=== PATIENT | male | born 1975 | race Caucasian/White ===

== ENCOUNTER → 2019-12-09 | Outpatient (REF) | payer BC ==
[2019-12-09 11:59] LABS: SEMEN APPEARANCE OPAQUE (OPAQUE); SEMEN VOLUME 4.3 ml (2.0-5.0)
[2019-12-09 12:00] LABS: SEMEN VISCOSITY LIQUID (LIQUID); SPERM CONCENTRATION 7.6 M/ml (>=15.0); WBC CONCENTRATION <=1 M/ml (<=1 M/ml)
== END ==
LOC: M SMT 11:50
PROVIDERS: ATTEND Nurse Practitioner Family
DX: N46.9 Male infertility, unspecified (principal)

== ENCOUNTER → 2019-12-28 | Outpatient (REF) | payer BC ==
[2019-12-28 14:06] LABS: SEMEN APPEARANCE OPAQUE (OPAQUE); SEMEN VISCOSITY LIQUID (LIQUID); SEMEN VOLUME 4.5 ml (2.0-5.0); SEMEN pH 8.5 (7.0-8.0); SPERM CONCENTRATION 22.9 M/ml (>=15.0); WBC CONCENTRATION <=1 M/ml (<=1 M/ml)
== END ==
LOC: M SMT 13:45
PROVIDERS: ATTEND Nurse Practitioner Family
DX: N46.9 Male infertility, unspecified (principal)

== ENCOUNTER → 2020-11-13 | Outpatient (REF) | payer BC ==
[2020-11-13 10:21] LABS: SEMEN APPEARANCE OPAQUE (OPAQUE); SEMEN VISCOSITY VISCOUS (LIQUID); SEMEN VOLUME 3.3 ml (2.0-5.0)
[2020-11-13 10:22] LABS: SPERM CONCENTRATION 18.9 M/ml (>=15.0); WBC CONCENTRATION >1 M/ml (<=1 M/ml)
== END ==
LOC: M SMT 10:01
PROVIDERS: ATTEND Nurse Practitioner Family
DX: N46.9 Male infertility, unspecified (principal)

== ENCOUNTER 2023-09-26 22:34 | Inpatient (IN) | payer BC ==
[~2023-09-26] VITALS: Ht 167.6 cm; Wt 64.5 kg
[2023-09-26] MEDS ORDERED: ACETAMINOPHEN TAB 650MG DOSE (2X325MG) PO PRN (23:45)
[2023-09-26] MEDS ORDERED: traZODone 50 MG TAB PO PRN (23:45)
[2023-09-26] MEDS ORDERED: MOM 30ML SUSPENSION UDC PO PRN (23:45)
[2023-09-26] MEDS ORDERED: diphenhydrAMINE 25MG CAP PO PRN (23:45)
[2023-09-26] MEDS ORDERED: MAALOX 30 ML SUSP *UDC PO PRN (23:45)
[2023-09-26] MEDS ORDERED: IBUPROFEN 400MG TAB PO PRN (23:45)
[2023-09-27] MEDS ORDERED: ESZO1TAB4 PO (00:21)
[2023-09-27] MEDS ORDERED: FLUO20CA22 PO (00:21)
[2023-09-27] MEDS ORDERED: XARE20TA PO (00:21)
[2023-09-27] MEDS ORDERED: HYDR-3363 PO (00:21)
[2023-09-27] MEDS ORDERED: HOME MED LIST COMPLETE! XX SCH (00:25)
[2023-09-27 00:47] VITALS: BP 140/82; TEMP 97.1; O2SAT 98
[2023-09-27 06:29] VITALS: BP 129/69; TEMP 97.5; O2SAT 96
[2023-09-27 10:38] LABS: HEMATOCRIT 48.6 % (42.0-52.0); HEMOGLOBIN 15.8 g/dl (13.5-17.5); MEAN CORPUSCULAR HEMOGLOBIN 30.6 pg (27.0-33.0); MEAN CORPUSCULAR HGB CONC 32.5 g/dl (32.0-36.5); MEAN CORPUSCULAR VOLUME 94.2 fl (80.0-96.0); PLATELET COUNT, AUTOMATED 184 10^3/uL (150-450); RED BLOOD COUNT 5.16 10^6/uL (4.30-6.10); WHITE BLOOD COUNT 5.6 10^3/uL (4.0-10.0)
[2023-09-27] MEDS: FLUoxetine 20MG CAP PO SCH (10:40)
[2023-09-27 10:59] LABS: ALBUMIN 3.9 G/DL (3.2-5.2); ALKALINE PHOSPHATASE 73 U/L (46-116); ALT/SGPT 30 U/L (7.0-40); AST/SGOT 20 U/L (<34); BILIRUBIN,TOTAL 0.9 MG/DL (0.3-1.2); BLOOD UREA NITROGEN 12 MG/DL (9-23); CALCIUM LEVEL 9.1 MG/DL (8.5-10.1); CARBON DIOXIDE LEVEL 30 MMOL/L (20-31); CHLORIDE LEVEL 108 MMOL/L (98-107); CREATININE FOR GFR 0.86 MG/DL (0.70-1.30); GLOMERULAR FILTRATION RATE > 60.0 (>60); GLUCOSE, FASTING 176 MG/DL (60-100); POTASSIUM SERUM 3.9 MMOL/L (3.5-5.1); SODIUM LEVEL 143 MMOL/L (136-145); TOTAL PROTEIN 6.9 G/DL (5.7-8.2)
[2023-09-27 11:02] LABS: THYROID STIMULATING HORMONE 2.646 uIU/ML (0.55-4.78)
[2023-09-27] MEDS ORDERED: ISOVUE-370 76% 100ML VIAL As Ordered ONE (11:03)
[2023-09-27] MEDS ORDERED: RIVAROXABAN 20MG TAB (XARELTO) PO SCH (18:00)
[2023-09-28 06:08] VITALS: BP 116/72; TEMP 98.5; O2SAT 97
[2023-09-28] MEDS: FLUoxetine 20MG CAP PO SCH (09:23)
[2023-09-28] MEDS ORDERED: ISOVUE-370 76% 100ML VIAL As Ordered ONE (10:12)
[2023-09-28 16:10] VITALS: BP 134/60; TEMP 98.8; O2SAT 96
[2023-09-28] MEDS: hydrOXYzine 50 MG TAB PO PRN (20:16)
[2023-09-28] MEDS: traZODone 50 MG TAB PO PRN (20:16)
[2023-09-29 06:32] VITALS: BP 103/62; TEMP 98.2; O2SAT 97
[2023-09-29] MEDS: FLUoxetine 20MG CAP PO SCH (08:44)
[2023-09-29 09:56] LABS: FREE T4 1.05 NG/DL (0.89-1.76)
[2023-09-29 18:11] VITALS: BP 166/69; TEMP 97.5
[2023-09-29] MEDS: hydrOXYzine 50 MG TAB PO PRN (20:05)
[2023-09-29] MEDS: traZODone 50 MG TAB PO PRN (20:06)
[2023-09-30 06:18] VITALS: BP 113/67; TEMP 97.8; O2SAT 97
[2023-09-30] MEDS ORDERED: FLUoxetine 10 MG CAP PO SCH (09:00)
[2023-09-30 17:02] VITALS: BP 118/70; TEMP 96.2; O2SAT 99
[2023-09-30] MEDS: hydrOXYzine 50 MG TAB PO PRN (20:02)
[2023-09-30] MEDS: traZODone 50 MG TAB PO PRN (20:02)
[2023-10-01 06:23] VITALS: BP 111/55; TEMP 98.2; O2SAT 96
[2023-10-01] MEDS ORDERED: E-Z-GAS II EFFERVESCENT PACKET (SODIUM BICARB./CITRIC ACID/SIMETHICONE) As Ordered ONE (07:37)
[2023-10-01] MEDS ORDERED: E-Z-PAQUE 96% w/w SUSP 176GM BTL As Ordered ONE (07:37)
[2023-10-01] MEDS ORDERED: E-Z-HD 98% w/w 340GM SUSP BTL As Ordered ONE (07:38)
[2023-10-01] MEDS: FLUoxetine 10 MG CAP PO SCH (08:53)
[2023-10-01] MEDS: RIVAROXABAN 20MG TAB (XARELTO) PO SCH (08:53)
[2023-10-01 17:05] VITALS: BP 111/63; TEMP 97.5; O2SAT 99
[2023-10-01] MEDS: hydrOXYzine 50 MG TAB PO PRN (20:18)
[2023-10-01] MEDS: traZODone 50 MG TAB PO PRN (20:18)
[2023-10-02 06:29] VITALS: BP 113/63; TEMP 97.3
[2023-10-02] MEDS: FLUoxetine 10 MG CAP PO SCH (08:15)
[2023-10-02] MEDS: RIVAROXABAN 20MG TAB (XARELTO) PO SCH (08:15)
[2023-10-02 16:28] VITALS: BP 102/62; TEMP 98.3; O2SAT 98
[2023-10-02] MEDS: hydrOXYzine 50 MG TAB PO PRN (21:36)
[2023-10-02] MEDS: traZODone 50 MG TAB PO PRN (21:36)
[2023-10-03 06:27] VITALS: BP 112/67; TEMP 98.2; O2SAT 97
[2023-10-03] MEDS: FLUoxetine 10 MG CAP PO SCH (08:09)
[2023-10-03] MEDS: RIVAROXABAN 20MG TAB (XARELTO) PO SCH (08:09)
[2023-10-03 15:50] VITALS: BP 110/58; TEMP 98.3; O2SAT 100
[2023-10-03] MEDS: traZODone 50 MG TAB PO PRN (21:40)
[2023-10-03] MEDS: hydrOXYzine 50 MG TAB PO PRN (21:40)
[2023-10-04 06:27] VITALS: BP 117/75; TEMP 98; O2SAT 100
[2023-10-04] MEDS: RIVAROXABAN 20MG TAB (XARELTO) PO SCH (08:24)
[2023-10-04] MEDS: FLUoxetine 10 MG CAP PO SCH (08:24)
[2023-10-04 15:24] VITALS: BP 100/58; TEMP 98; O2SAT 97
[2023-10-04] MEDS: hydrOXYzine 50 MG TAB PO PRN (21:31)
[2023-10-04] MEDS: traZODone 50 MG TAB PO PRN (21:31)
[2023-10-05 06:50] VITALS: BP 118/70; TEMP 98.2; O2SAT 100
[2023-10-05] MEDS: RIVAROXABAN 20MG TAB (XARELTO) PO SCH (08:23)
[2023-10-05] MEDS: FLUoxetine 10 MG CAP PO SCH (08:23)
[2023-10-05 18:00] VITALS: BP 114/58; TEMP 97.9; O2SAT 99
[2023-10-05] MEDS: traZODone 50 MG TAB PO PRN (20:34)
[2023-10-05] MEDS: hydrOXYzine 50 MG TAB PO PRN (20:34)
[2023-10-06 06:31] VITALS: BP 117/73; TEMP 97.1; O2SAT 97
[2023-10-06] MEDS: FLUoxetine 10 MG CAP PO SCH (08:53)
[2023-10-06] MEDS: RIVAROXABAN 20MG TAB (XARELTO) PO SCH (08:53)
[2023-10-06 16:32] VITALS: BP 112/60; TEMP 97.7; O2SAT 99
[2023-10-06] MEDS: hydrOXYzine 50 MG TAB PO PRN (20:16)
[2023-10-06] MEDS: traZODone 50 MG TAB PO PRN (20:16)
[2023-10-07 06:15] VITALS: BP 131/64; TEMP 97.6; O2SAT 96
[2023-10-07] MEDS: FLUoxetine 10 MG CAP PO SCH (08:38)
[2023-10-07] MEDS: RIVAROXABAN 20MG TAB (XARELTO) PO SCH (08:38)
[2023-10-07 18:21] VITALS: BP 104/63; TEMP 97.3; O2SAT 100
[2023-10-07] MEDS: traZODone 50 MG TAB PO PRN (20:37)
[2023-10-07] MEDS: hydrOXYzine 50 MG TAB PO PRN (20:37)
[2023-10-08 06:34] VITALS: BP 121/72; TEMP 97.3; O2SAT 99
[2023-10-08] MEDS: FLUoxetine 10 MG CAP PO SCH (08:10)
[2023-10-08] MEDS: RIVAROXABAN 20MG TAB (XARELTO) PO SCH (08:10)
[2023-10-08 16:28] VITALS: BP 106/62; TEMP 98.2; O2SAT 100
[2023-10-08] MEDS: hydrOXYzine 50 MG TAB PO PRN (20:20)
[2023-10-08] MEDS: traZODone 50 MG TAB PO PRN (20:21)
[2023-10-09 06:31] VITALS: BP 103/57; TEMP 97.7; O2SAT 98
[2023-10-09] MEDS: RIVAROXABAN 20MG TAB (XARELTO) PO SCH (08:19)
[2023-10-09] MEDS: FLUoxetine 10 MG CAP PO SCH (08:19)
[2023-10-09 16:18] VITALS: BP 110/70; TEMP 97.4; O2SAT 98
[2023-10-09] MEDS: traZODone 50 MG TAB PO PRN (20:14)
[2023-10-09] MEDS: hydrOXYzine 50 MG TAB PO PRN (20:14)
[2023-10-10] MEDS: FLUoxetine 10 MG CAP PO SCH (05:46)
[2023-10-10] MEDS: RIVAROXABAN 20MG TAB (XARELTO) PO SCH (05:46)
[2023-10-10 05:49] VITALS: BP 117/78; TEMP 97.6; O2SAT 97
[2023-10-10 18:20] VITALS: BP 127/64; TEMP 97.8
[2023-10-10] MEDS: traZODone 50 MG TAB PO PRN (20:21)
[2023-10-10] MEDS: hydrOXYzine 50 MG TAB PO PRN (20:21)
[2023-10-11] MEDS: FLUoxetine 10 MG CAP PO SCH (05:30)
[2023-10-11] MEDS: RIVAROXABAN 20MG TAB (XARELTO) PO SCH (05:30)
[2023-10-11 05:51] VITALS: BP 127/57; TEMP 98.9; O2SAT 97
[2023-10-11 18:37] VITALS: BP 103/58; TEMP 97.6
[2023-10-11] MEDS: hydrOXYzine 50 MG TAB PO PRN (20:08)
[2023-10-11] MEDS: traZODone 50 MG TAB PO PRN (20:08)
[2023-10-12] MEDS: FLUoxetine 10 MG CAP PO SCH (05:56)
[2023-10-12] MEDS: RIVAROXABAN 20MG TAB (XARELTO) PO SCH (05:56)
[2023-10-12 06:18] VITALS: BP 117/65; TEMP 97.8
[2023-10-12] MEDS ORDERED: FLUoxetine 10 MG CAP PO ONE (14:30)
[2023-10-12 17:51] VITALS: BP 111/58; TEMP 97.4; O2SAT 100
[2023-10-12] MEDS: traZODone 50 MG TAB PO PRN (20:16)
[2023-10-12] MEDS: hydrOXYzine 50 MG TAB PO PRN (20:16)
[2023-10-13] MEDS: RIVAROXABAN 20MG TAB (XARELTO) PO SCH (06:06)
[2023-10-13] MEDS: FLUoxetine 10 MG CAP PO SCH (06:06)
[2023-10-13 06:32] VITALS: BP 116/77; TEMP 97.9
[2023-10-13 16:15] VITALS: BP 110/68; TEMP 97.7; O2SAT 100
[2023-10-13] MEDS: hydrOXYzine 50 MG TAB PO PRN (20:36)
[2023-10-13] MEDS: traZODone 50 MG TAB PO PRN (20:37)
[2023-10-14] MEDS: RIVAROXABAN 20MG TAB (XARELTO) PO SCH (06:11)
[2023-10-14] MEDS: FLUoxetine 10 MG CAP PO SCH (06:11)
[2023-10-14 06:35] VITALS: BP 115/65; TEMP 97.6; O2SAT 97
[2023-10-14 17:13] VITALS: BP 121/72; TEMP 98.1
[2023-10-14] MEDS: traZODone 50 MG TAB PO PRN (20:08)
[2023-10-14] MEDS: hydrOXYzine 50 MG TAB PO PRN (20:08)
[2023-10-15] MEDS: RIVAROXABAN 20MG TAB (XARELTO) PO SCH (05:53)
[2023-10-15] MEDS: FLUoxetine 10 MG CAP PO SCH (05:53)
[2023-10-15 06:51] VITALS: BP 116/65; TEMP 98; O2SAT 97
[2023-10-15 16:59] VITALS: BP 114/55; TEMP 97.8; O2SAT 100
[2023-10-15] MEDS: hydrOXYzine 50 MG TAB PO PRN (20:14)
[2023-10-15] MEDS: traZODone 50 MG TAB PO PRN (20:14)
[2023-10-16] MEDS: RIVAROXABAN 20MG TAB (XARELTO) PO SCH (05:41)
[2023-10-16] MEDS: FLUoxetine 10 MG CAP PO SCH (05:41)
[2023-10-16 06:32] VITALS: BP 122/76; TEMP 98.9; O2SAT 98
[2023-10-16] MEDS ORDERED: FLUoxetine 10 MG CAP PO ONE (11:00)
[2023-10-16 16:27] VITALS: BP 97/58; TEMP 97.5; O2SAT 100
[2023-10-16] MEDS: traZODone 50 MG TAB PO PRN (21:35)
[2023-10-16] MEDS: hydrOXYzine 50 MG TAB PO PRN (21:35)
[2023-10-17] MEDS: RIVAROXABAN 20MG TAB (XARELTO) PO SCH (05:33)
[2023-10-17] MEDS: FLUoxetine 20MG CAP PO SCH (05:33)
[2023-10-17 06:31] VITALS: BP 125/69; TEMP 97.5; O2SAT 97
[2023-10-17 15:54] VITALS: BP 108/56; TEMP 97.8; O2SAT 97
[2023-10-17] MEDS: traZODone 50 MG TAB PO PRN (21:12)
[2023-10-17] MEDS: hydrOXYzine 50 MG TAB PO PRN (21:12)
[2023-10-18] MEDS: FLUoxetine 20MG CAP PO SCH (05:46)
[2023-10-18] MEDS: RIVAROXABAN 20MG TAB (XARELTO) PO SCH (05:51)
[2023-10-18 06:42] VITALS: BP 111/60; TEMP 98.5; O2SAT 97
[2023-10-18 16:08] VITALS: BP 102/59; TEMP 97.3; O2SAT 97
[2023-10-18] MEDS: hydrOXYzine 50 MG TAB PO PRN (20:14)
[2023-10-18] MEDS: traZODone 50 MG TAB PO PRN (20:14)
[2023-10-19] MEDS: RIVAROXABAN 20MG TAB (XARELTO) PO SCH (06:00)
[2023-10-19] MEDS: FLUoxetine 20MG CAP PO SCH (06:13)
[2023-10-19 06:34] VITALS: BP 118/76; TEMP 99.1; O2SAT 98
[2023-10-19] MEDS: busPIRone 10 MG TAB PO SCH ×2 (09:00→20:16)
[2023-10-19] MEDS ORDERED: busPIRone 10 MG TAB PO SCH (09:00)
[2023-10-19 18:33] VITALS: BP 124/75; TEMP 97.6; O2SAT 97
[2023-10-19] MEDS: traZODone 50 MG TAB PO PRN (20:16)
[2023-10-19] MEDS: hydrOXYzine 50 MG TAB PO PRN (20:16)
[2023-10-20] MEDS: RIVAROXABAN 20MG TAB (XARELTO) PO SCH (05:29)
[2023-10-20] MEDS: FLUoxetine 20MG CAP PO SCH (05:30)
[2023-10-20 06:12] VITALS: BP 137/77; TEMP 97.9; O2SAT 96
[2023-10-20] MEDS: busPIRone 10 MG TAB PO SCH (08:53)
[2023-10-20] MEDS ORDERED: BUSP10TA PO (10:59)
[2023-10-20] MEDS ORDERED: FLUO60TA6 PO (10:59)
[2023-10-20] MEDS ORDERED: HYDR50TA70 PO (10:59)
[2023-10-20] MEDS ORDERED: TRAZ-252 PO (10:59)
== END 2023-10-20 14:45 | disposition home or self-care (01) | DRG 754 ==
LOC: M ED 22:34 → M ED INP 23:45 → M PSY 09-27 00:35
PROVIDERS: ADMIT Student in an Organized Health Care Education/Training Program; ATTEND Student in an Organized Health Care Education/Training Program
DX: F32.A Depression, unspecified (principal); R13.10 Dysphagia, unspecified; R45.851 Suicidal ideations; F41.9 Anxiety disorder, unspecified; Z86.718 Personal history of other venous thrombosis and embolism; E04.9 Nontoxic goiter, unspecified; G47.00 Insomnia, unspecified; R63.4 Abnormal weight loss; R68.81 Early satiety; Z95.820 Peripheral vascular angioplasty status with implants and grafts; Z63.5 Disruption of family by separation and divorce; Z95.828 Presence of other vascular implants and grafts; Z63.4 Disappearance and death of family member; Z63.8 Other specified problems related to primary support group; Z91.51 Personal history of suicidal behavior; Z56.2 Threat of job loss; Z98.84 Bariatric surgery status; Z79.899 Other long term (current) drug therapy; Z79.01 Long term (current) use of anticoagulants